=== PATIENT | male | born 1960 | race Caucasian/White ===

== ENCOUNTER 2019-05-09 10:45 | Emergency (ER) | payer OTHER ==
[2019-05-09 11:02] VITALS: BP 144/92; PULSE 82
[2019-05-09] MEDS ORDERED: Sodium Chloride 0.9% 10 ML Syringe FLUSH PRN (11:24)
[2019-05-09] MEDS ORDERED: Ondansetron 4 MG/2 ML SDV IVPUSH ONE (11:25)
[2019-05-09] MEDS ORDERED: Sodium Chloride 0.9% 1,000 ML IV ONE (11:25)
--- NOTE | 2019-05-09 11:30 | EDM.PDOC ---
ED HPI GENERAL MEDICAL PROBLEM - General Chief Complaint: Gastrointestinal Problem Stated Complaint: STOMACH ISSUES Time Seen by Provider: 05/09/19 11:06 Source of Information: Reports: Patient History Limitations: Reports: No Limitations - History of Present Illness INITIAL COMMENTS - FREE TEXT/NARRATIVE: Redd is a 59 year old male who presents to the ED today with c/o diarrhea since about noon on . Patient was waking up in the middle of the night every couple of hours with watery stool, denies any blood in diarrhea. Patient denies any vomiting but is nauseated, c/o fever/chills intermittently, took Mylanta without relief. Has had 2 loose stools today but none while sleeping last night. Denies any abdominal pain just c/o abdominal "discomfort". Patient has not traveled outside of [place] lately, no recent antibiotics, thinks his symptoms may have been due to a hard boiled egg he ate at a hotel on morning. Patient has had a recent colonoscopy and thinks he was told he has diverticulosis, but has never had diverticulitis. Onset: Gradual Duration: Day(s): (3) Abdominal Pain Score (Numeric/FACES): 6 - Related Data Allergies Allergy/AdvReac Type Severity Reaction Status Date / Time Sulfa (Sulfonamide Allergy Hives Verified 05/09/19 11:08 Antibiotics) Home Meds: Home Meds Multivitamin [Multi-Vitamin Daily] 1 tab PO DAILY 02/18/19 [History] Past Medical History - Past Health History Medical/Surgical History: Denies Medical/Surgical History HEENT History: Reports: None Cardiovascular History: Reports: None Respiratory History: Reports: None Gastrointestinal History: Reports: None Genitourinary History: Reports: None Musculoskeletal History: Reports: Back Pain, Chronic, Fracture Other Musculoskeletal History: ankle Neurological History: Reports: None Psychiatric History: Reports: None Endocrine/Metabolic History: Reports: None Hematologic History: Reports: Other (See Below) Other Hematologic History: history of purpura Immunologic History: Reports: None Oncologic (Cancer) History: Reports: None Dermatologic History: Reports: None - Past Surgical History GI Surgical History: Reports: Colonoscopy, Polypectomy Musculoskeletal Surgical History: Reports: Other (See Below) Other Musculoskeletal Surgeries/Procedures:: left leg surgery in past Social & Family History - Tobacco Use Smoking Status *Q: Never Smoker - Caffeine Use Caffeine Use: Reports: Tea - Recreational Drug Use Recreational Drug Use: No ED ROS GENERAL - Review of Systems Review Of Systems: ROS reveals no pertinent complaints other than HPI. ED EXAM, GI/ABD - Physical Exam Exam: See Below Exam Limited By: No Limitations General Appearance: Alert, WD/WN, No Apparent Distress Eyes: Bilateral: EOMI Ears: Normal External Exam Throat/Mouth: Normal Inspection Head: Atraumatic Neck: Normal Inspection, Supple, Non-Tender Respiratory/Chest: No Respiratory Distress, Lungs Clear Cardiovascular: Normal Peripheral Pulses, Regular Rate, Rhythm GI/Abdominal Exam: Normal Bowel Sounds, Soft, Non-Tender, No Distention Back Exam: Normal Inspection Extremities: Normal Inspection Neurological: Alert, Oriented, CN II-XII Intact Psychiatric: Normal Affect Skin Exam: Warm, Dry, Intact Lymphatic: No Adenopathy Course - Vital Signs Last Recorded V/S: Last Vital Signs Temp 36.6 C 05/09/19 11:46 Pulse 82 05/09/19 11:46 Resp 19 05/09/19 11:46 BP 144/92 H 05/09/19 11:46 Pulse Ox 96 05/09/19 11:46 Redd is a 59 year old male who presents to the ED today with c/o diarrhea, weakness, light headedness. Please refer to HPI and focused exam. Patient on arrival here is hemodynamically stable and afebrile. Patient's exam is reassuring and unremarkable. PIV established, patient given Zofran for nausea and IV fluids. Blood work returns with leukocytosis of 17.7 and a left shift, elevated CRP. Sodium mildly low at 138 with a potassium of 3.4. Kidney function stable. Gap of 16.4, mildly elevated bilirubin of 1.3. Secondary to elevated white count, CT of abdomen/pelvis obtained with contrast. No acute findings on CT to warrant GI complaints, however, radiologist did call with concern about 1.8 cm right renal mass concerning for renal carcinoma. Right middle lobe pulmonary nodules as well although patient with minimal smoking history "constitution party smoker years ago". Patient updated on findings, request for primary care follow up here next week as patient and just moved up here and he does not have a PCP as of yet. Strongly encouraged urology follow up per PCP recommendation. Patient given dietary recommendations, strongly recommend Culturelle. Discussed importance of hydration and reasons to return to the ED. Patient and agreeable to plan of care and patient discharged in stable condition. - Orders/Labs/Meds Orders: Active Orders 24 hr Category Date Time Status Peripheral IV Care [RC] . DIRECTED Care 05/09/19 11:24 Active CLOSTRIDIUM DIFFICILE BY PCR [] Stat Lab 05/09/19 11:13 Ordered CULTURE STOOL + SHIGATOX [RM] Stat Lab 05/09/19 11:13 Ordered Sodium Chloride 0.9% [Saline Flush] Med 05/09/19 11:24 Active 10 ml FLUSH ASDIRECTED PRN Isolation [COMM] Stat Oth 05/09/19 11:14 Ordered Peripheral IV Insertion Adult [OM.PC] Routine Oth 05/09/19 11:24 Ordered Medication Orders Sodium Chloride (Saline Flush) 10 ml FLUSH ASDIRECTED PRN PRN Reason: Keep Vein Open Last Admin: 05/09/19 12:06 Dose: 10 ml Labs: Laboratory Tests 05/09/19 05/09/19 05/09/19 Range/Units 11:35 11:35 11:35 WBC 17.7 H (4.5-11.0) K/uL RBC 5.14 (4.30-5.90) M/uL Hgb 16.3 H (12.0-15.0) g/dL Hct 46.7 (40.0-54.0) % MCV 91 (80-98) fL MCH 32 H (27-31) pg MCHC 35 (32-36) % Plt Count 255 (150-400) K/uL Neut % (Auto) 82 H (36-66) % Lymph % (Auto) 7 L (24-44) % [place] % (Auto) 9 H (2-6) % Eos % (Auto) 2 (2-4) % Baso % (Auto) 0 (0-1) % Sodium 138 L (140-148) mmol/L Potassium 3.4 L (3.6-5.2) mmol/L Chloride 102 (100-108) mmol/L Carbon Dioxide 23 (21-32) mmol/L Anion Gap 16.4 H (5.0-14.0) mmol/L BUN 16 (7-18) mg/dL Creatinine 1.1 (0.8-1.3) mg/dL Est Cr Clr Drug Dosing 80.34 mL/min Estimated GFR (MDRD) > 60 (>60) Glucose 86 (74-106) mg/dL Calcium 8.9 (8.5-10.1) mg/dL Magnesium 1.8 (1.8-2.4) mg/dL Total Bilirubin 1.3 H (0.2-1.0) mg/dL AST 17 (15-37) U/L ALT 31 (12-78) U/L Alkaline Phosphatase 88 (46-116) U/L C-Reactive Protein 2.81 H (0.0-0.3) mg/dL Total Protein 7.3 (6.4-8.2) g/dL Albumin 3.6 (3.4-5.0) g/dL Globulin 3.7 H (2.3-3.5) g/dL Albumin/Globulin Ratio 1.0 L (1.2-2.2) Lipase 44 L (73-393) U/L Meds: Medications Generic Name Dose Route Start Last Admin Trade Name Freq PRN Reason Stop Dose Admin Sodium Chloride 10 ml 05/09/19 11:24 05/09/19 12:06 Saline Flush FLUSH 10 ml ASDIRECTED PRN Administration Keep Vein Open Discontinued Medications Generic Name Dose Route Start Last Admin Trade Name Freq PRN Reason Stop Dose Admin Sodium Chloride 1,000 mls @ 999 mls/hr 05/09/19 11:25 05/09/19 11:40 Normal Saline IV 05/09/19 12:25 999 mls/hr .BOLUS ONE Administration Sodium Chloride 80 mls @ 3 mls/sec 05/09/19 12:15 05/09/19 12:26 Normal Saline IV 05/09/19 12:16 3 mls/sec ONETIME ONE Administration Iopamidol 135 ml 05/09/19 12:15 05/09/19 12:26 Isovue-300 (61%) IV 135 ml . DIRECTED TALISHA Administration Ondansetron HCl 4 mg 05/09/19 11:25 05/09/19 11:40 Zofran IVPUSH 05/09/19 11:26 4 mg ONETIME ONE Administration Sodium Chloride 10 ml 05/09/19 12:15 05/09/19 12:26 Saline Flush FLUSH 05/09/19 12:16 10 ml ONETIME ONE Administration Departure - Departure Time of Disposition: 14:00 Disposition: Home, Self-Care 01 Condition: Fair Clinical Impression: Gastroenteritis, Diarrhea, Renal mass, right - Discharge Information Instructions: Diarrhea, Adult, Viral Gastroenteritis, Adult Referrals: PCP,None [Primary Care Provider] - Forms: ED Department Discharge Additional Instructions: Stay well hydrated. Zofran as needed for nausea as prescribed. I would strongly encourage a good probiotic, Culturelle, this is over the counter in a yellow box. I would take one capsule twice daily for the next 7 days. I have requested a primary care appointment for you this week. They can refer to urology. Take care, hope you feel better soon and good luck with everything. - My Orders Last 24 Hours: My Active Orders 05/09/19 11:13 CLOSTRIDIUM DIFFICILE BY PCR [RM] Stat CULTURE STOOL + SHIGATOX [RM] Stat 05/09/19 11:14 Isolation [COMM] Stat 05/09/19 11:24 Peripheral IV Care [RC] . DIRECTED Sodium Chloride 0.9% [Saline Flush] 10 ml FLUSH ASDIRECTED PRN Peripheral IV Insertion Adult [OM.PC] Routine - Assessment/Plan Last 24 Hours: My Active Orders 05/09/19 11:13 CLOSTRIDIUM DIFFICILE BY PCR [RM] Stat CULTURE STOOL + SHIGATOX [RM] Stat 05/09/19 11:14 Isolation [COMM] Stat 05/09/19 11:24 Peripheral IV Care [RC] . DIRECTED Sodium Chloride 0.9% [Saline Flush] 10 ml FLUSH ASDIRECTED PRN Peripheral IV Insertion Adult [OM.PC] Routine
[2019-05-09] MEDS ORDERED: Iopamidol 612 MG/ML 150 ML Bottle IV SCH (12:15)
[2019-05-09] MEDS ORDERED: Sodium Chloride 0.9% 10 ML Syringe FLUSH ONE (12:15)
[2019-05-09] MEDS ORDERED: Sodium Chloride 0.9% 80 ML IV ONE (12:15)
--- NOTE | 2019-05-09 13:05 | CRLCT ---
HISTORY: Left lower quadrant pain. Nausea and diarrhea. Leukocytosis. TECHNIQUE: CT abdomen pelvis with IV contrast. COMPARISON: None. FINDINGS: Abdomen: No liver lesions. No bile duct dilation. No pancreatic mass or pancreatic duct dilation. No spleen lesions. No adrenal nodules. Kidneys enhance symmetrically. 1.8 x 1.3 x 1.4 cm solid mass in the upper pole the right kidney no hydronephrosis. No dilated bowel. Appendix is normal. No pericolonic inflammatory change. No free fluid. No lymphadenopathy. Abdominal aorta is normal caliber. Pelvis: No lymphadenopathy. Musculoskeletal: Degenerative changes of the spine. Lower chest: Adjacent 3 mm pulmonary nodules in the right middle lobe (series 2 image 5). Mild atelectasis in the lung bases. IMPRESSION: 1. No acute findings in the abdomen or pelvis. 2. 1.8 cm solid right renal mass suspicious for renal cell carcinoma. Recommend urology consultation. 3. 3 mm pulmonary nodules in the right middle lobe. If patient is at high risk for malignancy consider follow-up chest CT in 12 months. --- Called to Danay Lopez NP on 05/09/19 at 1300 hours. Please note that all CT scans at this facility use dose modulation, iterative reconstruction, and/or weight-based dosing when appropriate to reduce radiation dose to as low as reasonably achievable. Dictated by Koko Muniz MD @ May 09 2019 1:04PM Signed by Dr. Koko Muniz @ May 09 2019 1:04PM
== END 2019-05-09 13:46 | disposition home or self-care (01) ==
LOC: JP.ED 10:45
DX: K52.9 Noninfective gastroenteritis and colitis, unspecified (principal); N28.89 Other specified disorders of kidney and ureter; Z88.2 Allergy status to sulfonamides
CPT/HCPCS: 36415; 74177; 80053; 83690; 83735; 85025; 86140; 96361; 96374; 99284; 99285; J2405; J7030

== ENCOUNTER 2020-10-11 10:16 | Inpatient (IN) | payer OTHER ==
[2020-10-11] MEDS ORDERED: Sodium Chloride 0.9% 10 ML Syringe FLUSH PRN ×2 (11:36→16:07)
--- NOTE | 2020-10-11 11:42 | EDM.PDOC ---
ED HPI GENERAL MEDICAL PROBLEM - General Chief Complaint: Genitourinary Problem Stated Complaint: POSSIBLE UTI Time Seen by Provider: 10/11/20 10:55 Source of Information: Reports: Patient, RN Notes Reviewed History Limitations: Reports: No Limitations - History of Present Illness INITIAL COMMENTS - FREE TEXT/NARRATIVE: 60-year-old gentleman presents emergency department today with concerns of a urinary tract infection, he states been ill for about 3 days he has had fevers and chills at home body aches feeling poorly he has dysuria admits to feeling ill is never had a urinary tract infection in the past - Related Data Allergies Allergy/AdvReac Type Severity Reaction Status Date / Time Sulfa (Sulfonamide Allergy Hives Verified 10/11/20 10:34 Antibiotics) Home Meds: Home Meds Multivitamin [Multi-Vitamin Daily] 1 tab PO DAILY 02/18/19 [History] allopurinoL [Zyloprim] 100 mg PO DAILY 10/11/20 [History] Past Medical History Genitourinary History: Reports: Renal Disease Other Genitourinary History: removed part of right kidney cancerous lesion Musculoskeletal History: Reports: Back Pain, Chronic, Fracture Other Musculoskeletal History: ankle. low back pain Hematologic History: Reports: Other (See Below) Other Hematologic History: history of purpura - Infectious Disease History Infectious Disease History: Reports: Chicken Pox, Shingles - Past Surgical History GI Surgical History: Reports: Colonoscopy, Polypectomy Male Surgical History: Reports: None Musculoskeletal Surgical History: Reports: Other (See Below) Other Musculoskeletal Surgeries/Procedures:: left leg surgery in past Social & Family History - Tobacco Use Tobacco Use Status *Q: Never Tobacco User - Caffeine Use Caffeine Use: Reports: Tea - Recreational Drug Use Recreational Drug Use: No ED ROS GENERAL - Review of Systems Review Of Systems: See Below Constitutional: Reports: Fever, Chills, Fatigue HEENT: Reports: No Symptoms Respiratory: Reports: No Symptoms Cardiovascular: Reports: No Symptoms GI/Abdominal: Reports: No Symptoms : Reports: Dysuria, Frequency, Urgency ED EXAM, RENAL/ - Physical Exam Exam: See Below Exam Limited By: No Limitations General Appearance: Alert, WD/WN, No Apparent Distress Respiratory/Chest: No Respiratory Distress, Lungs Clear, Normal Breath Sounds, No Accessory Muscle Use, Chest Non-Tender Cardiovascular: Regular Rate, Rhythm, No Murmur GI/Abdominal: Soft, Non-Tender Rectal (Males) Exam: Normal Exam, Normal Rectal Tone, Prostate Normal Back Exam: Normal Inspection, Full Range of Motion. No: CVA Tenderness (R), CVA Tenderness (L) Course - Vital Signs Last Recorded V/S: Last Vital Signs Temp 98.8 F 10/11/20 13:00 Pulse 90 10/11/20 13:00 Resp 18 10/11/20 13:00 BP 120/75 10/11/20 13:00 Pulse Ox 97 10/11/20 13:00 - Orders/Labs/Meds Orders: Active Orders 24 hr Category Date Time Status Vital Signs [RC] Q1H Care 10/11/20 11:36 Active CULTURE BLOOD [BC] Urgent Lab 10/11/20 11:45 Received CULTURE BLOOD [BC] Urgent Lab 10/11/20 11:55 Received CULTURE URINE [RM] Urgent Lab 10/11/20 11:28 Received Lactated Ringers [Ringers, Lactated] 1,000 ml Med 10/11/20 11:45 Active IV ASDIRECTED Lactated Ringers [Ringers, Lactated] 1,000 ml Med 10/11/20 13:00 Active IV BOLUS Sodium Chloride 0.9% [Saline Flush] Med 10/11/20 11:36 Active 10 ml FLUSH ASDIRECTED PRN cefTRIAXone [Rocephin] 2 gm Med 10/11/20 11:45 Active Sodium Chloride 0.9% [Normal Saline] 50 ml IV Q24H Blood Culture x2 Reflex Set [OM.PC] Urgent Oth 10/11/20 11:36 Ordered Saline Lock Insert [OM.PC] Stat Oth 10/11/20 11:36 Ordered Severe Sepsis Onset Time [OM.PC] Stat Oth 10/11/20 11:36 Ordered Medication Orders Lactated Ringer's (Ringers, Lactated) 1,000 mls @ 999 mls/hr IV ASDIRECTED TALISHA Last Admin: 10/11/20 11:45 Dose: 999 mls/hr Documented by: OLE Ceftriaxone Sodium 2 gm/ (Sodium Chloride) 50 mls @ 100 mls/hr IV Q24H TALISHA Last Admin: 10/11/20 12:01 Dose: 100 mls/hr Documented by: OLE Lactated Ringer's (Ringers, Lactated) 1,000 mls @ 999 mls/hr IV BOLUS TALISHA Stop: 10/11/20 14:01 Last Admin: 10/11/20 12:54 Dose: 999 mls/hr Documented by: KIRAN Sodium Chloride (Sodium Chloride 0.9% 10 Ml Syringe) 10 ml FLUSH ASDIRECTED PRN PRN Reason: Keep Vein Open Labs: Laboratory Tests 10/11/20 10/11/20 10/11/20 Range/Units 10:47 11:55 11:55 WBC 23.4 H (4.5-11.0) K/uL RBC 4.91 (4.30-5.90) M/uL Hgb 15.5 H (12.0-15.0) g/dL Hct 45.2 (40.0-54.0) % MCV 92 (80-98) fL MCH 32 H (27-31) pg MCHC 34 (32-36) % Plt Count 234 (150-400) K/uL Neut % (Auto) 87 H (36-66) % Lymph % (Auto) 4 L (24-44) % [place] % (Auto) 9 H (2-6) % Eos % (Auto) 0 L (2-4) % Baso % (Auto) 0 (0-1) % Sodium 139 L (140-148) mmol/L Potassium 3.9 (3.6-5.2) mmol/L Chloride 101 (100-108) mmol/L Carbon Dioxide 26 (21-32) mmol/L Anion Gap 15.9 H (5.0-14.0) mmol/L BUN 16 (7-18) mg/dL Creatinine 1.5 H (0.8-1.3) mg/dL Est Cr Clr Drug Dosing 58.20 mL/min Estimated GFR (MDRD) 48 L (>60) Glucose 120 H (74-106) mg/dL Lactic Acid (0.4-2.0) mmol/L Calcium 9.0 (8.5-10.1) mg/dL Total Bilirubin 1.9 H (0.2-1.0) mg/dL AST 17 (15-37) U/L ALT 40 (12-78) U/L Alkaline Phosphatase 107 (46-116) U/L C-Reactive Protein 20.03 H (0.0-0.3) mg/dL Total Protein 7.5 (6.4-8.2) g/dL Albumin 3.4 (3.4-5.0) g/dL Globulin 4.1 H (2.3-3.5) g/dL Albumin/Globulin Ratio 0.8 L (1.2-2.2) Procalcitonin ng/mL Urine Color Brown A (YELLOW) Urine Appearance Cloudy A (CLEAR) Urine pH 6.0 (5.0-8.0) Ur Specific [place] >= 1.030 (1.008-1.030) Urine Protein >=300 H (NEGATIVE) mg/dL Urine Glucose (UA) Negative (NEGATIVE) mg/dL Urine Ketones 15 H (NEGATIVE) mg/dL Urine Occult Blood Large H (NEGATIVE) Urine Nitrite Positive H (NEGATIVE) Urine Bilirubin Small H (NEGATIVE) Urine Urobilinogen 1.0 (0.2-1.0) EU/dL Ur Leukocyte Esterase Small H (NEGATIVE) Urine RBC 50-75 H (0-5) Urine WBC 30-40 H (0-5) Ur Epithelial Cells Not seen Amorphous Sediment Not seen Urine Bacteria Many Urine Mucus Not seen 10/11/20 10/11/20 Range/Units 11:55 11:55 WBC (4.5-11.0) K/uL RBC (4.30-5.90) M/uL Hgb (12.0-15.0) g/dL Hct (40.0-54.0) % MCV (80-98) fL MCH (27-31) pg MCHC (32-36) % Plt Count (150-400) K/uL Neut % (Auto) (36-66) % Lymph % (Auto) (24-44) % [place] % (Auto) (2-6) % Eos % (Auto) (2-4) % Baso % (Auto) (0-1) % Sodium (140-148) mmol/L Potassium (3.6-5.2) mmol/L Chloride (100-108) mmol/L Carbon Dioxide (21-32) mmol/L Anion Gap (5.0-14.0) mmol/L BUN (7-18) mg/dL Creatinine (0.8-1.3) mg/dL Est Cr Clr Drug Dosing mL/min Estimated GFR (MDRD) (>60) Glucose (74-106) mg/dL Lactic Acid 1.7 (0.4-2.0) mmol/L Calcium (8.5-10.1) mg/dL Total Bilirubin (0.2-1.0) mg/dL AST (15-37) U/L ALT (12-78) U/L Alkaline Phosphatase (46-116) U/L C-Reactive Protein (0.0-0.3) mg/dL Total Protein (6.4-8.2) g/dL Albumin (3.4-5.0) g/dL Globulin (2.3-3.5) g/dL Albumin/Globulin Ratio (1.2-2.2) Procalcitonin 0.67 ng/mL Urine Color (YELLOW) Urine Appearance (CLEAR) Urine pH (5.0-8.0) Ur Specific [place] (1.008-1.030) Urine Protein (NEGATIVE) mg/dL Urine Glucose (UA) (NEGATIVE) mg/dL Urine Ketones (NEGATIVE) mg/dL Urine Occult Blood (NEGATIVE) Urine Nitrite (NEGATIVE) Urine Bilirubin (NEGATIVE) Urine Urobilinogen (0.2-1.0) EU/dL Ur Leukocyte Esterase (NEGATIVE) Urine RBC (0-5) Urine WBC (0-5) Ur Epithelial Cells Amorphous Sediment Urine Bacteria Urine Mucus Meds: Medications Generic Name Dose Route Start Last Admin Trade Name Freq PRN Reason Stop Dose Admin Lactated Ringer's 1,000 mls @ 999 mls/hr 10/11/20 11:45 10/11/20 11:45 Ringers, Lactated IV 999 mls/hr ASDIRECTED TALISHA Administration Ceftriaxone Sodium 2 gm/ 50 mls @ 100 mls/hr 10/11/20 11:45 10/11/20 12:01 Sodium Chloride IV 100 mls/hr Q24H TALISHA Administration Lactated Ringer's 1,000 mls @ 999 mls/hr 10/11/20 13:00 10/11/20 12:54 Ringers, Lactated IV 10/11/20 14:01 999 mls/hr BOLUS TALISHA Administration Sodium Chloride 10 ml 10/11/20 11:36 Sodium Chloride 0.9% 10 Ml Syringe FLUSH ASDIRECTED PRN Keep Vein Open Departure - Departure Time of Disposition: 13:52 Disposition: Admitted As Inpatient 67 Condition: Fair Clinical Impression: UTI, Urinary tract infectious disease - Discharge Information Referrals: PCP,None [Primary Care Provider] - Forms: ED Department Discharge Sepsis Event Note (ED) - Evaluation Sepsis Screening Result: Possible Severe Sepsis Risk - Focused Exam Vital Signs: Vital Signs Temp Pulse Resp BP Pulse Ox 10/11/20 13:00 98.8 F 90 18 120/75 97 10/11/20 12:35 99.1 F 90 16 118/74 97 10/11/20 11:34 99.1 F 102 H 16 129/81 96 10/11/20 10:43 99.1 F 102 H 16 129/81 96 10/11/20 10:32 99.1 F 102 H 16 129/81 96 - My Orders Last 24 Hours: My Active Orders 10/11/20 11:28 CULTURE URINE [RM] Urgent 10/11/20 11:36 Vital Signs [RC] Q1H Sodium Chloride 0.9% [Saline Flush] 10 ml FLUSH ASDIRECTED PRN Blood Culture x2 Reflex Set [OM.PC] Urgent Saline Lock Insert [OM.PC] Stat Severe Sepsis Onset Time [OM.PC] Stat 10/11/20 11:45 CULTURE BLOOD [BC] Urgent Lactated Ringers [Ringers, Lactated] 1,000 ml IV ASDIRECTED cefTRIAXone [Rocephin] 2 gm Sodium Chloride 0.9% [Normal Saline] 50 ml IV Q24H 10/11/20 11:55 CULTURE BLOOD [BC] Urgent 10/11/20 13:00 Lactated Ringers [Ringers, Lactated] 1,000 ml IV BOLUS - Assessment/Plan Last 24 Hours: My Active Orders 10/11/20 11:28 CULTURE URINE [RM] Urgent 10/11/20 11:36 Vital Signs [RC] Q1H Sodium Chloride 0.9% [Saline Flush] 10 ml FLUSH ASDIRECTED PRN Blood Culture x2 Reflex Set [OM.PC] Urgent Saline Lock Insert [OM.PC] Stat Severe Sepsis Onset Time [OM.PC] Stat 10/11/20 11:45 CULTURE BLOOD [BC] Urgent Lactated Ringers [Ringers, Lactated] 1,000 ml IV ASDIRECTED cefTRIAXone [Rocephin] 2 gm Sodium Chloride 0.9% [Normal Saline] 50 ml IV Q24H 10/11/20 11:55 CULTURE BLOOD [BC] Urgent 10/11/20 13:00 Lactated Ringers [Ringers, Lactated] 1,000 ml IV BOLUS Plan: Assessment Acuity = acute Site and laterality = urinary tract infection, systemic inflammatory response syndrome Etiology = probable bacterial cause urinary source Manifestations = tachycardia Location of injury = Home Lab values = WBC elevated 23.4 consistent leukocytosis, creatinine elevated 1.5 consistent acute renal failure stage T3a bilirubin elevated 1.9 consistent hyperbilirubinemia CRP elevated 20.03 procalcitonin elevated 0.67 urinalysis positive for nitrates 50-75 RBCs 30-40 WBCs consistent with hematuria and pyuria respectively, urine culture blood culture pending Plan He did receive 2 L of lactated Ringer's in the emergency department as well as 2 g of Rocephin call discussed case hospitalist on-call at [phone] kindly agreed to come evaluate patient emergency department for admission This note was dictated using [employer] voice recognition software please call with any questions on syntax or grammar.
[2020-10-11] MEDS ORDERED: Lactated Ringers 1,000 ML IV SCH ×2 (11:45→13:00)
[2020-10-11] MEDS ORDERED: cefTRIAXone 2 GM in Sodium Chloride 0.9% 50 ML IV SCH (11:45)
--- NOTE | 2020-10-11 14:26 | PCM.HP.2 ---
H&P History of Present Illness - General Date of Service: 10/11/20 Admit Problem/Dx: Admission Diagnosis/Problem Admission Diagnosis/Problem Urinary tract infection Source of Information: Patient, Provider, RN Notes Reviewed History Limitations: Reports: No Limitations - History of Present Illness Initial Comments - Free Text/Narative: Mr. English is a 60-year-old gentleman who was admitted through the emergency department with weakness secondary to urinary tract infection. He felt well until 2 days ago when he developed progressive weakness with myalgias. At that time he also noted onset of cloudy appearing urine associated with dysuria. Symptoms have persisted over the past few days and become progressively worse. He presented to the emergency department today and on evaluation is noted to have an elevated white blood cell count and urinalysis consistent with infection. He does have a known history of renal cell CA and is status post partial nephrectomy done approximately 1 year ago. He typically does not have significant urinary symptoms or difficulty with urination. - Related Data Allergies/Adverse Reactions: Allergies Allergy/AdvReac Type Severity Reaction Status Date / Time Sulfa (Sulfonamide Allergy Hives Verified 10/11/20 10:34 Antibiotics) Home Medications: Home Meds Multivitamin [Multi-Vitamin Daily] 1 tab PO DAILY 02/18/19 [History] allopurinoL [Zyloprim] 100 mg PO DAILY 10/11/20 [History] Past Medical History - Past Health History Medical/Surgical History: Denies Medical/Surgical History HEENT History: Reports: None Cardiovascular History: Reports: None Respiratory History: Reports: None Gastrointestinal History: Reports: None Genitourinary History: Reports: Renal Disease Other Genitourinary History: removed part of right kidney cancerous lesion Musculoskeletal History: Reports: Back Pain, Chronic, Fracture Other Musculoskeletal History: ankle. low back pain Neurological History: Reports: None Psychiatric History: Reports: None Endocrine/Metabolic History: Reports: None Hematologic History: Reports: Other (See Below) Other Hematologic History: history of purpura Immunologic History: Reports: None Oncologic (Cancer) History: Reports: None Dermatologic History: Reports: None - Infectious Disease History Infectious Disease History: Reports: Chicken Pox, Shingles - Past Surgical History GI Surgical History: Reports: Colonoscopy, Polypectomy Male Surgical History: Reports: None Musculoskeletal Surgical History: Reports: Other (See Below) Other Musculoskeletal Surgeries/Procedures:: left leg surgery in past Social & Family History - Tobacco Use Tobacco Use Status *Q: Never Tobacco User - Caffeine Use Caffeine Use: Reports: Tea - Recreational Drug Use Recreational Drug Use: No H&P Review of Systems - Review of Systems: Review Of Systems: See Below General: Reports: Fever, Chills, Malaise, Weakness, Fatigue, Decreased Appetite HEENT: Reports: No Symptoms Pulmonary: Reports: No Symptoms Cardiovascular: Reports: No Symptoms Gastrointestinal: Reports: No Symptoms Genitourinary: Reports: Dysuria, Frequency, Urgency, Hematuria. Denies: Incontinence, Retention, Flank Pain Musculoskeletal: Reports: No Symptoms Skin: Reports: No Symptoms Psychiatric: Reports: No Symptoms Neurological: Reports: No Symptoms Hematologic/Lymphatic: Reports: No Symptoms Immunologic: Reports: No Symptoms Exam - Exam Exam: See Below - Vital Signs Vital Signs: Last Vital Signs Temp 98.8 F 10/11/20 13:00 Pulse 90 10/11/20 13:00 Resp 18 10/11/20 13:00 BP 120/75 10/11/20 13:00 Pulse Ox 97 10/11/20 13:00 Weight: 205 lb 4.006 oz - Exam Quality Assessment: DVT Prophylaxis General: Alert, Oriented, Cooperative, Moderate Distress HEENT: Conjunctiva Clear, Hearing Intact, Mucosa Moist & [place], Normal Nasal Septum, Posterior Pharynx Clear, Pupils Equal Neck: Supple, Trachea Midline, +2 Carotid Pulse wo Bruit Lungs: Clear to Auscultation, Normal Respiratory Effort Cardiovascular: Regular Rate, Regular Rhythm, Normal S1, Normal S2. No: Systolic Murmur, Diastolic Murmur GI/Abdominal Exam: Soft, Non-Tender, No Organomegaly, No Distention Back Exam: Normal Inspection, Full Range of Motion. No: CVA Tenderness (R), CVA Tenderness (L) Extremities: Non-Tender, No Pedal Edema Skin: Warm, Dry, Intact Neurological: Cranial Nerves Intact, Strength Equal Bilateral, Normal Speech, Normal Tone, Sensation Intact. No: Focal Deficit Neuro Extensive - Mental Status: Alert, Oriented x3, Normal Mood/Affect, Normal Cognition, Memory Intact - Patient Data Lab Results Last 24 hrs: Laboratory Results - last 24 hr 10/11/20 10/11/20 10/11/20 Range/Units 10:47 11:55 11:55 WBC 23.4 H (4.5-11.0) K/uL RBC 4.91 (4.30-5.90) M/uL Hgb 15.5 H (12.0-15.0) g/dL Hct 45.2 (40.0-54.0) % MCV 92 (80-98) fL MCH 32 H (27-31) pg MCHC 34 (32-36) % Plt Count 234 (150-400) K/uL Neut % (Auto) 87 H (36-66) % Lymph % (Auto) 4 L (24-44) % [place] % (Auto) 9 H (2-6) % Eos % (Auto) 0 L (2-4) % Baso % (Auto) 0 (0-1) % Sodium 139 L (140-148) mmol/L Potassium 3.9 (3.6-5.2) mmol/L Chloride 101 (100-108) mmol/L Carbon Dioxide 26 (21-32) mmol/L Anion Gap 15.9 H (5.0-14.0) mmol/L BUN 16 (7-18) mg/dL Creatinine 1.5 H (0.8-1.3) mg/dL Est Cr Clr Drug Dosing 58.20 mL/min Estimated GFR (MDRD) 48 L (>60) Glucose 120 H (74-106) mg/dL Lactic Acid (0.4-2.0) mmol/L Calcium 9.0 (8.5-10.1) mg/dL Total Bilirubin 1.9 H (0.2-1.0) mg/dL AST 17 (15-37) U/L ALT 40 (12-78) U/L Alkaline Phosphatase 107 (46-116) U/L C-Reactive Protein 20.03 H (0.0-0.3) mg/dL Total Protein 7.5 (6.4-8.2) g/dL Albumin 3.4 (3.4-5.0) g/dL Globulin 4.1 H (2.3-3.5) g/dL Albumin/Globulin Ratio 0.8 L (1.2-2.2) Procalcitonin ng/mL Urine Color Brown A (YELLOW) Urine Appearance Cloudy A (CLEAR) Urine pH 6.0 (5.0-8.0) Ur Specific [place] >= 1.030 (1.008-1.030) Urine Protein >=300 H (NEGATIVE) mg/dL Urine Glucose (UA) Negative (NEGATIVE) mg/dL Urine Ketones 15 H (NEGATIVE) mg/dL Urine Occult Blood Large H (NEGATIVE) Urine Nitrite Positive H (NEGATIVE) Urine Bilirubin Small H (NEGATIVE) Urine Urobilinogen 1.0 (0.2-1.0) EU/dL Ur Leukocyte Esterase Small H (NEGATIVE) Urine RBC 50-75 H (0-5) Urine WBC 30-40 H (0-5) Ur Epithelial Cells Not seen Amorphous Sediment Not seen Urine Bacteria Many Urine Mucus Not seen 10/11/20 10/11/20 Range/Units 11:55 11:55 WBC (4.5-11.0) K/uL RBC (4.30-5.90) M/uL Hgb (12.0-15.0) g/dL Hct (40.0-54.0) % MCV (80-98) fL MCH (27-31) pg MCHC (32-36) % Plt Count (150-400) K/uL Neut % (Auto) (36-66) % Lymph % (Auto) (24-44) % [place] % (Auto) (2-6) % Eos % (Auto) (2-4) % Baso % (Auto) (0-1) % Sodium (140-148) mmol/L Potassium (3.6-5.2) mmol/L Chloride (100-108) mmol/L Carbon Dioxide (21-32) mmol/L Anion Gap (5.0-14.0) mmol/L BUN (7-18) mg/dL Creatinine (0.8-1.3) mg/dL Est Cr Clr Drug Dosing mL/min Estimated GFR (MDRD) (>60) Glucose (74-106) mg/dL Lactic Acid 1.7 (0.4-2.0) mmol/L Calcium (8.5-10.1) mg/dL Total Bilirubin (0.2-1.0) mg/dL AST (15-37) U/L ALT (12-78) U/L Alkaline Phosphatase (46-116) U/L C-Reactive Protein (0.0-0.3) mg/dL Total Protein (6.4-8.2) g/dL Albumin (3.4-5.0) g/dL Globulin (2.3-3.5) g/dL Albumin/Globulin Ratio (1.2-2.2) Procalcitonin 0.67 ng/mL Urine Color (YELLOW) Urine Appearance (CLEAR) Urine pH (5.0-8.0) Ur Specific [place] (1.008-1.030) Urine Protein (NEGATIVE) mg/dL Urine Glucose (UA) (NEGATIVE) mg/dL Urine Ketones (NEGATIVE) mg/dL Urine Occult Blood (NEGATIVE) Urine Nitrite (NEGATIVE) Urine Bilirubin (NEGATIVE) Urine Urobilinogen (0.2-1.0) EU/dL Ur Leukocyte Esterase (NEGATIVE) Urine RBC (0-5) Urine WBC (0-5) Ur Epithelial Cells Amorphous Sediment Urine Bacteria Urine Mucus Result Diagrams: 10/11/20 11:55 10/11/20 11:55 Sepsis Event Note - Evaluation Sepsis Screening Result: Possible Severe Sepsis Risk - Focused Exam Vital Signs: Vital Signs Temp Pulse Resp BP Pulse Ox 10/11/20 13:00 98.8 F 90 18 120/75 97 10/11/20 12:35 99.1 F 90 16 118/74 97 10/11/20 11:34 99.1 F 102 H 16 129/81 96 10/11/20 10:43 99.1 F 102 H 16 129/81 96 10/11/20 10:32 99.1 F 102 H 16 129/81 96 *Q Meaningful Use (ADM) - VTE Risk Assess *Q Each Risk Factor Represents 1 Point: Age 41 - 59 years, Obesity ( BMI > 25 kg/m2) Total Score 1 Point Risk Factors: 2 Each Risk Factor Represents 2 Points: None Total Score 2 Point Risk Factors: 0 Each Risk Factor Represents 3 Points: None Total Score 3 Point Risk Factors: 0 Each Risk Factor Represents 5 Points: None Total Score 5 Point Risk Factors: 0 Venous Thromboembolism Risk Factor Score *Q: 2 Problem List Initiated/Reviewed/Updated: Yes Orders Last 24hrs: Active Orders 24 hr Category Date Time Status Patient Status Manage Transfer [TRANSFER] Routine ADT 10/11/20 14:20 Ordered Vital Signs [RC] Q1H Care 10/11/20 11:36 Active COVID-19/FLU A+B/RSV [MOLEC] Stat Lab 10/11/20 14:05 Ordered CULTURE BLOOD [BC] Urgent Lab 10/11/20 11:45 Received CULTURE BLOOD [BC] Urgent Lab 10/11/20 11:55 Received CULTURE URINE [RM] Urgent Lab 10/11/20 11:28 Received Lactated Ringers [Ringers, Lactated] 1,000 ml Med 10/11/20 11:45 Active IV ASDIRECTED Sodium Chloride 0.9% [Saline Flush] Med 10/11/20 11:36 Active 10 ml FLUSH ASDIRECTED PRN cefTRIAXone [Rocephin] 2 gm Med 10/11/20 11:45 Active Sodium Chloride 0.9% [Normal Saline] 50 ml IV Q24H Blood Culture x2 Reflex Set [OM.PC] Urgent Oth 10/11/20 11:36 Ordered Saline Lock Insert [OM.PC] Stat Oth 10/11/20 11:36 Ordered Severe Sepsis Onset Time [OM.PC] Stat Ot 10/11/20 11:36 Ordered Resuscitation Status Routine Resus Stat 10/11/20 14:22 Ordered Medication Orders Lactated Ringer's (Ringers, Lactated) 1,000 mls @ 999 mls/hr IV ASDIRECTED [facility] Last Admin: 10/11/20 11:45 Dose: 999 mls/hr Documented by: OLE Ceftriaxone Sodium 2 gm/ (Sodium Chloride) 50 mls @ 100 mls/hr IV Q24H [facility] Last Admin: 10/11/20 12:01 Dose: 100 mls/hr Documented by: OLE Sodium Chloride (Sodium Chloride 0.9% 10 Ml Syringe) 10 ml FLUSH ASDIRECTED PRN PRN Reason: Keep Vein Open Assessment/Plan Comment:: ASSESSMENT AND PLAN URINARY TRACT INFECTION-symptomatic for the past 2 days with progressive weakness and dysuria. No evidence of sepsis identified thus far. Urinalysis is consistent with infection and white blood cell count is elevated. -Urine and blood cultures pending -IV fluids for hydration -IV ceftriaxone pending culture results MAINTENANCE ISSUES -DVT prophylaxis; Lovenox 30 mg subcu daily -GI prophylaxis; not indicated -Scott catheter; not indicated -Nutrition; regular diet -Nicotine dependence; not required CODE STATUS-FULL CODE ADMISSION STATUS-patient will be admitted to inpatient status, expect at least a 2 night hospital stay for evaluation and management of problems as outlined above. At the time of this admission I do not reasonably expected evaluation and management of this problem will require more than a 96 hour hospital stay. DISPOSITION-anticipate discharge to home after the hospital stay. - Mortality Measure Prognosis:: Good
[2020-10-11 15:46] LABS: CORONAVIRUS COVID-19 NAA NEGATIVE (NEGATIVE)
[2020-10-11] MEDS ORDERED: Polyethylene Glycol 3350 Powder 17 GM Packet PO PRN (16:07)
[2020-10-11] MEDS ORDERED: Ondansetron 4 MG/2 ML SDV IV PRN (16:07)
[2020-10-11] MEDS: Enoxaparin 40 MG/0.4 ML Syringe SUBCUT SCH (16:46)
[2020-10-11] MEDS: Sodium Chloride 0.9% 1,000 ML IV SCH (16:46)
[2020-10-12] MEDS: Sodium Chloride 0.9% 1,000 ML IV SCH ×2 (00:56→09:04)
[2020-10-12] MEDS: Allopurinol 100 MG Tab PO SCH (09:06)
--- NOTE | 2020-10-12 11:43 | PCM.PN ---
- General Info Date of Service: 10/12/20 Subjective Update: Mr. English continues to experience weakness and lethargy. He has remained stable since admission with good vital signs and no significant temperature elevation. White blood cell count has improved from admission. Functional Status: Reports: Tolerating Diet, Urinating - Review of Systems General: Reports: Weakness, Fatigue, Malaise. Denies: Fever, Chills Pulmonary: Reports: No Symptoms Cardiovascular: Reports: No Symptoms Gastrointestinal: Reports: No Symptoms Genitourinary: Reports: Dysuria, Frequency - Patient Data Vitals - Most Recent: Last Vital Signs Temp 97.6 F 10/12/20 10:33 Pulse 72 10/12/20 10:33 Resp 16 10/12/20 10:33 BP 100/58 L 10/12/20 10:33 Pulse Ox 95 10/12/20 10:33 Weight - Most Recent: 197 lb 15.602 oz I&O - Last 24 Hours: Intake & Output 10/11/20 10/12/20 10/12/20 22:59 06:59 14:59 Intake Total 500 1200 2757 Balance 500 1200 2757 Lab Results Last 24 Hours: Laboratory Results - last 24 hr 10/11/20 10/11/20 10/11/20 Range/Units 11:55 11:55 11:55 WBC 23.4 H (4.5-11.0) K/uL RBC 4.91 (4.30-5.90) M/uL Hgb 15.5 H (12.0-15.0) g/dL Hct 45.2 (40.0-54.0) % MCV 92 (80-98) fL MCH 32 H (27-31) pg MCHC 34 (32-36) % Plt Count 234 (150-400) K/uL Neut % (Auto) 87 H (36-66) % Lymph % (Auto) 4 L (24-44) % [place] % (Auto) 9 H (2-6) % Eos % (Auto) 0 L (2-4) % Baso % (Auto) 0 (0-1) % Sodium 139 L (140-148) mmol/L Potassium 3.9 (3.6-5.2) mmol/L Chloride 101 (100-108) mmol/L Carbon Dioxide 26 (21-32) mmol/L Anion Gap 15.9 H (5.0-14.0) mmol/L BUN 16 (7-18) mg/dL Creatinine 1.5 H (0.8-1.3) mg/dL Est Cr Clr Drug Dosing 58.20 mL/min Estimated GFR (MDRD) 48 L (>60) Glucose 120 H (74-106) mg/dL Lactic Acid 1.7 (0.4-2.0) mmol/L Calcium 9.0 (8.5-10.1) mg/dL Magnesium (1.8-2.4) mg/dL Total Bilirubin 1.9 H (0.2-1.0) mg/dL AST 17 (15-37) U/L ALT 40 (12-78) U/L Alkaline Phosphatase 107 (46-116) U/L C-Reactive Protein 20.03 H (0.0-0.3) mg/dL Total Protein 7.5 (6.4-8.2) g/dL Albumin 3.4 (3.4-5.0) g/dL Globulin 4.1 H (2.3-3.5) g/dL Albumin/Globulin Ratio 0.8 L (1.2-2.2) Procalcitonin ng/mL Influenza Type A RNA (NEGATIVE) RSV RNA (INAAT) (NEGATIVE) Influenza Type B RNA (NEGATIVE) SARS-CoV-2 RNA (NIKOLAI) (NEGATIVE) 10/11/20 10/11/20 10/12/20 Range/Units 11:55 14:05 05:39 WBC 13.8 H (4.5-11.0) K/uL RBC 3.91 L (4.30-5.90) M/uL Hgb 12.5 D (12.0-15.0) g/dL Hct 36.2 L (40.0-54.0) % MCV 93 (80-98) fL MCH 32 H (27-31) pg MCHC 35 (32-36) % Plt Count 182 (150-400) K/uL Neut % (Auto) 83 H (36-66) % Lymph % (Auto) 9 L (24-44) % [place] % (Auto) 8 H (2-6) % Eos % (Auto) 0 L (2-4) % Baso % (Auto) 0 (0-1) % Sodium (140-148) mmol/L Potassium (3.6-5.2) mmol/L Chloride (100-108) mmol/L Carbon Dioxide (21-32) mmol/L Anion Gap (5.0-14.0) mmol/L BUN (7-18) mg/dL Creatinine (0.8-1.3) mg/dL Est Cr Clr Drug Dosing mL/min Estimated GFR (MDRD) (>60) Glucose (74-106) mg/dL Lactic Acid (0.4-2.0) mmol/L Calcium (8.5-10.1) mg/dL Magnesium (1.8-2.4) mg/dL Total Bilirubin (0.2-1.0) mg/dL AST (15-37) U/L ALT (12-78) U/L Alkaline Phosphatase (46-116) U/L C-Reactive Protein (0.0-0.3) mg/dL Total Protein (6.4-8.2) g/dL Albumin (3.4-5.0) g/dL Globulin (2.3-3.5) g/dL Albumin/Globulin Ratio (1.2-2.2) Procalcitonin 0.67 ng/mL Influenza Type A RNA Negative (NEGATIVE) RSV RNA (INAAT) Negative (NEGATIVE) Influenza Type B RNA Negative (NEGATIVE) SARS-CoV-2 RNA (NIKOLAI) Negative (NEGATIVE) 10/12/20 Range/Units 05:39 WBC (4.5-11.0) K/uL RBC (4.30-5.90) M/uL Hgb (12.0-15.0) g/dL Hct (40.0-54.0) % MCV (80-98) fL MCH (27-31) pg MCHC (32-36) % Plt Count (150-400) K/uL Neut % (Auto) (36-66) % Lymph % (Auto) (24-44) % [place] % (Auto) (2-6) % Eos % (Auto) (2-4) % Baso % (Auto) (0-1) % Sodium 142 (140-148) mmol/L Potassium 3.9 (3.6-5.2) mmol/L Chloride 106 (100-108) mmol/L Carbon Dioxide 25 (21-32) mmol/L Anion Gap 10.8 (5.0-14.0) mmol/L BUN 13 (7-18) mg/dL Creatinine 1.2 (0.8-1.3) mg/dL Est Cr Clr Drug Dosing 72.75 mL/min Estimated GFR (MDRD) > 60 (>60) Glucose 105 (74-106) mg/dL Lactic Acid (0.4-2.0) mmol/L Calcium 8.1 L (8.5-10.1) mg/dL Magnesium 1.9 (1.8-2.4) mg/dL Total Bilirubin 1.8 H (0.2-1.0) mg/dL AST 93 H D (15-37) U/L ALT 107 H (12-78) U/L Alkaline Phosphatase 150 H (46-116) U/L C-Reactive Protein (0.0-0.3) mg/dL Total Protein 5.7 L (6.4-8.2) g/dL Albumin 2.4 L (3.4-5.0) g/dL Globulin 3.3 (2.3-3.5) g/dL Albumin/Globulin Ratio 0.7 L (1.2-2.2) Procalcitonin ng/mL Influenza Type A RNA (NEGATIVE) RSV RNA (INAAT) (NEGATIVE) Influenza Type B RNA (NEGATIVE) SARS-CoV-2 RNA (NIKOLAI) (NEGATIVE) Dion Results Last 24 Hours: Microbiology 10/11/20 11:28 Urine Culture - Preliminary Urine, Clean Catch Med Orders - Current: Current Medications Acetaminophen (Acetaminophen 325 Mg Tab) 650 mg PO Q4H PRN PRN Reason: Pain (Mild 1-3)/fever Allopurinol (Allopurinol 100 Mg Tab) 100 mg PO DAILY [facility] Last Admin: 10/12/20 09:06 Dose: 100 mg Documented by: Enoxaparin Sodium (Enoxaparin 40 Mg/0.4 Ml Syringe) 40 mg SUBCUT Q24H [facility] Last Admin: 10/11/20 16:46 Dose: 40 mg Documented by: Ceftriaxone Sodium 1 gm/ (Sodium Chloride) 50 mls @ 100 mls/hr IV Q24H [facility] Ondansetron HCl (Ondansetron 4 Mg/2 Ml Sdv) 4 mg IV Q4H PRN PRN Reason: Nausea/Vomiting Polyethylene Glycol (Polyethylene Glycol 3350 Powder 17 Gm Packet) 17 gm PO DAILY PRN PRN Reason: Constipation Sodium Chloride (Sodium Chloride 0.9% 10 Ml Syringe) 10 ml FLUSH ASDIRECTED PRN PRN Reason: Keep Vein Open Discontinued Medications Lactated Ringer's (Ringers, Lactated) 1,000 mls @ 999 mls/hr IV ASDIRECTED [facility] Last Admin: 10/11/20 11:45 Dose: 999 mls/hr Documented by: Ceftriaxone Sodium 2 gm/ (Sodium Chloride) 50 mls @ 100 mls/hr IV Q24H [facility] Last Admin: 10/11/20 12:01 Dose: 100 mls/hr Documented by: Lactated Ringer's (Ringers, Lactated) 1,000 mls @ 999 mls/hr IV BOLUS [facility] Stop: 10/11/20 14:01 Last Admin: 10/11/20 12:54 Dose: 999 mls/hr Documented by: Sodium Chloride (Normal Saline) 1,000 mls @ 125 mls/hr IV ASDIRECTED [facility] Last Admin: 10/12/20 09:04 Dose: 125 mls/hr Documented by: Sodium Chloride (Sodium Chloride 0.9% 10 Ml Syringe) 10 ml FLUSH ASDIRECTED PRN PRN Reason: Keep Vein Open - Exam Quality Assessment: DVT Prophylaxis General: Alert, Oriented, Cooperative, Mild Distress Lungs: Clear to Auscultation, Normal Respiratory Effort Cardiovascular: Regular Rate, Regular Rhythm, No Murmurs GI/Abdominal Exam: Soft, Non-Tender, No Organomegaly, No Distention Extremities: Non-Tender, No Pedal Edema - Patient Data Lab Results Last 24 hrs: Laboratory Results - last 24 hr 10/11/20 10/11/20 10/11/20 Range/Units 11:55 11:55 11:55 WBC 23.4 H (4.5-11.0) K/uL RBC 4.91 (4.30-5.90) M/uL Hgb 15.5 H (12.0-15.0) g/dL Hct 45.2 (40.0-54.0) % MCV 92 (80-98) fL MCH 32 H (27-31) pg MCHC 34 (32-36) % Plt Count 234 (150-400) K/uL Neut % (Auto) 87 H (36-66) % Lymph % (Auto) 4 L (24-44) % [place] % (Auto) 9 H (2-6) % Eos % (Auto) 0 L (2-4) % Baso % (Auto) 0 (0-1) % Sodium 139 L (140-148) mmol/L Potassium 3.9 (3.6-5.2) mmol/L Chloride 101 (100-108) mmol/L Carbon Dioxide 26 (21-32) mmol/L Anion Gap 15.9 H (5.0-14.0) mmol/L BUN 16 (7-18) mg/dL Creatinine 1.5 H (0.8-1.3) mg/dL Est Cr Clr Drug Dosing 58.20 mL/min Estimated GFR (MDRD) 48 L (>60) Glucose 120 H (74-106) mg/dL Lactic Acid 1.7 (0.4-2.0) mmol/L Calcium 9.0 (8.5-10.1) mg/dL Magnesium (1.8-2.4) mg/dL Total Bilirubin 1.9 H (0.2-1.0) mg/dL AST 17 (15-37) U/L ALT 40 (12-78) U/L Alkaline Phosphatase 107 (46-116) U/L C-Reactive Protein 20.03 H (0.0-0.3) mg/dL Total Protein 7.5 (6.4-8.2) g/dL Albumin 3.4 (3.4-5.0) g/dL Globulin 4.1 H (2.3-3.5) g/dL Albumin/Globulin Ratio 0.8 L (1.2-2.2) Procalcitonin ng/mL Influenza Type A RNA (NEGATIVE) RSV RNA (INAAT) (NEGATIVE) Influenza Type B RNA (NEGATIVE) SARS-CoV-2 RNA (NIKOLAI) (NEGATIVE) 10/11/20 10/11/20 10/12/20 Range/Units 11:55 14:05 05:39 WBC 13.8 H (4.5-11.0) K/uL RBC 3.91 L (4.30-5.90) M/uL Hgb 12.5 D (12.0-15.0) g/dL Hct 36.2 L (40.0-54.0) % MCV 93 (80-98) fL MCH 32 H (27-31) pg MCHC 35 (32-36) % Plt Count 182 (150-400) K/uL Neut % (Auto) 83 H (36-66) % Lymph % (Auto) 9 L (24-44) % [place] % (Auto) 8 H (2-6) % Eos % (Auto) 0 L (2-4) % Baso % (Auto) 0 (0-1) % Sodium (140-148) mmol/L Potassium (3.6-5.2) mmol/L Chloride (100-108) mmol/L Carbon Dioxide (21-32) mmol/L Anion Gap (5.0-14.0) mmol/L BUN (7-18) mg/dL Creatinine (0.8-1.3) mg/dL Est Cr Clr Drug Dosing mL/min Estimated GFR (MDRD) (>60) Glucose (74-106) mg/dL Lactic Acid (0.4-2.0) mmol/L Calcium (8.5-10.1) mg/dL Magnesium (1.8-2.4) mg/dL Total Bilirubin (0.2-1.0) mg/dL AST (15-37) U/L ALT (12-78) U/L Alkaline Phosphatase (46-116) U/L C-Reactive Protein (0.0-0.3) mg/dL Total Protein (6.4-8.2) g/dL Albumin (3.4-5.0) g/dL Globulin (2.3-3.5) g/dL Albumin/Globulin Ratio (1.2-2.2) Procalcitonin 0.67 ng/mL Influenza Type A RNA Negative (NEGATIVE) RSV RNA (INAAT) Negative (NEGATIVE) Influenza Type B RNA Negative (NEGATIVE) SARS-CoV-2 RNA (NIKOLAI) Negative (NEGATIVE) 10/12/20 Range/Units 05:39 WBC (4.5-11.0) K/uL RBC (4.30-5.90) M/uL Hgb (12.0-15.0) g/dL Hct (40.0-54.0) % MCV (80-98) fL MCH (27-31) pg MCHC (32-36) % Plt Count (150-400) K/uL Neut % (Auto) (36-66) % Lymph % (Auto) (24-44) % [place] % (Auto) (2-6) % Eos % (Auto) (2-4) % Baso % (Auto) (0-1) % Sodium 142 (140-148) mmol/L Potassium 3.9 (3.6-5.2) mmol/L Chloride 106 (100-108) mmol/L Carbon Dioxide 25 (21-32) mmol/L Anion Gap 10.8 (5.0-14.0) mmol/L BUN 13 (7-18) mg/dL Creatinine 1.2 (0.8-1.3) mg/dL Est Cr Clr Drug Dosing 72.75 mL/min Estimated GFR (MDRD) > 60 (>60) Glucose 105 (74-106) mg/dL Lactic Acid (0.4-2.0) mmol/L Calcium 8.1 L (8.5-10.1) mg/dL Magnesium 1.9 (1.8-2.4) mg/dL Total Bilirubin 1.8 H (0.2-1.0) mg/dL AST 93 H D (15-37) U/L ALT 107 H (12-78) U/L Alkaline Phosphatase 150 H (46-116) U/L C-Reactive Protein (0.0-0.3) mg/dL Total Protein 5.7 L (6.4-8.2) g/dL Albumin 2.4 L (3.4-5.0) g/dL Globulin 3.3 (2.3-3.5) g/dL Albumin/Globulin Ratio 0.7 L (1.2-2.2) Procalcitonin ng/mL Influenza Type A RNA (NEGATIVE) RSV RNA (INAAT) (NEGATIVE) Influenza Type B RNA (NEGATIVE) SARS-CoV-2 RNA (NIKOLAI) (NEGATIVE) Result Diagrams: 10/12/20 05:39 10/12/20 05:39 Dion Results Last 24 hrs: Microbiology 10/11/20 11:28 Urine Culture - Preliminary Urine, Clean Catch Sepsis Event Note - Evaluation Sepsis Screening Result: No Definite Risk - Focused Exam Vital Signs: Vital Signs Temp Pulse Resp BP BP Pulse Ox 10/12/20 10:33 97.6 F 72 16 100/58 L 95 10/12/20 07:15 97.8 F 64 20 113/64 94 L 10/12/20 03:25 97.8 F 77 16 106/57 L 97 10/12/20 00:18 97.6 F 81 16 145/84 H 95 - Problem List Review Problem List Initiated/Reviewed/Updated: Yes - My Orders Last 24 Hours: My Active Orders 10/11/20 Lunch Regular Diet [DIET] 10/11/20 14:22 Resuscitation Status Routine 10/11/20 16:07 Acetaminophen [TylenoL] 650 mg PO Q4H PRN Ondansetron [Zofran] 4 mg IV Q4H PRN Sodium Chloride 0.9% [Saline Flush] 10 ml FLUSH ASDIRECTED PRN polyethylene glycoL 3350 [MiraLAX] 17 gm PO DAILY PRN 10/11/20 16:07 Patient Status [ADT] Routine Ambulate [RC] QID Height and Weight [RC] 0500 Intake and Output [RC] QSHIFT Notify Provider Vital Signs [RC] ASDIRECTED Oxygen Therapy [RC] PRN Peripheral IV Care [RC] Q12H Up ad Zaria [RC] ASDIRECTED Up to Chair [RC] QID Vital Signs [RC] Q4H Peripheral IV Insertion Adult [OM.PC] Routine 10/11/20 17:00 Enoxaparin [Lovenox] 40 mg SUBCUT Q24H 10/12/20 09:00 allopurinoL [Zyloprim] 100 mg PO DAILY 10/12/20 11:38 Convert IV to Saline Lock [OM.PC] Routine 10/12/20 14:30 cefTRIAXone [Rocephin] 1 gm Sodium Chloride 0.9% [Normal Saline] 50 ml IV Q24H 10/13/20 05:00 CBC WITH AUTO DIFF [HEME] Timed COMPREHENSIVE METABOLIC PN,CMP [CHEM] Timed - Plan Plan:: ASSESSMENT AND PLAN URINARY TRACT INFECTION-remains weak and somewhat lethargic. No evidence of sepsis identified thus far. Urinalysis is consistent with infection and white blood cell count is elevated but improved from admission -Urine and blood cultures pending -Saline lock IV -IV ceftriaxone pending culture results MAINTENANCE ISSUES -DVT prophylaxis; Lovenox 30 mg subcu daily -GI prophylaxis; not indicated -Scott catheter; not indicated -Nutrition; regular diet -Nicotine dependence; not required CODE STATUS-FULL CODE ADMISSION STATUS-patient will be admitted to inpatient status, expect at least a 2 night hospital stay for evaluation and management of problems as outlined above. At the time of this admission I do not reasonably expected evaluation and management of this problem will require more than a 96 hour hospital stay. DISPOSITION-anticipate discharge to home after the hospital stay.
[2020-10-12] MEDS ORDERED: Albuterol 0.083% 2.5 MG/3 ML Neb Soln NEB PRN (13:44)
[2020-10-12] MEDS ORDERED: cefTRIAXone 1 GM in Sodium Chloride 0.9% 50 ML IV SCH (14:30)
[2020-10-12] MEDS: Acetaminophen 325 MG Tab PO PRN ×2 (14:51→23:55)
[2020-10-12] MEDS: Enoxaparin 40 MG/0.4 ML Syringe SUBCUT SCH (17:31)
[2020-10-13] MEDS: Allopurinol 100 MG Tab PO SCH (09:15)
--- NOTE | 2020-10-13 10:50 | US ---
Abdomen Ltd CLINICAL HISTORY: Elevated bilirubin COMPARISON: CT 2019. TECHNIQUE: Real-time images were obtained through the right upper quadrant. FINDINGS: The liver is free of mass or biliary dilatation. There is normal parenchymal echotexture.. The gallbladder contains some biliary sludge. There is no wall thickening The common bile duct measures 4 mm. The pancreas is moderately obscured. The right kidney measures 11.2 x 6.0 x 6.3 cm. Cortical thickness is 2.1 cm.. The IVC is normal. IMPRESSION: Biliary sludge in the gallbladder No stones or biliary ductal dilatation
--- NOTE | 2020-10-13 13:00 | PCM.PN ---
- General Info Date of Service: 10/13/20 Subjective Update: Mr. English feels somewhat weak and lethargic, no significant temperature elevations in the last 24 hours. Bilirubin level is elevated to 2.8 as well as further increase in AST, ALT, and alkaline phosphatase. Ultrasound shows gallbladder sludge but no wall thickening or ductal dilatation. Functional Status: Reports: Ambulating, Urinating. Denies: Tolerating Diet - Review of Systems General: Reports: Weakness, Fatigue, Malaise. Denies: Fever, Chills, Appetite Pulmonary: Reports: No Symptoms Cardiovascular: Reports: No Symptoms Gastrointestinal: Reports: No Symptoms Genitourinary: Reports: Dysuria, Frequency. Denies: Hematuria, Retention - Patient Data Vitals - Most Recent: Last Vital Signs Temp 96.6 F L 10/13/20 10:43 Pulse 66 10/13/20 10:43 Resp 18 10/13/20 10:43 BP 124/80 10/13/20 10:43 Pulse Ox 98 10/13/20 10:43 Weight - Most Recent: 197 lb 15.602 oz I&O - Last 24 Hours: Intake & Output 10/12/20 10/13/20 10/13/20 22:59 06:59 14:59 Intake Total 920 300 600 Balance 920 300 600 Lab Results Last 24 Hours: Laboratory Results - last 24 hr 10/13/20 10/13/20 Range/Units 05:41 05:41 WBC 8.1 (4.5-11.0) K/uL RBC 4.09 L (4.30-5.90) M/uL Hgb 13.0 (12.0-15.0) g/dL Hct 37.6 L (40.0-54.0) % MCV 92 (80-98) fL MCH 32 H (27-31) pg MCHC 35 (32-36) % Plt Count 200 (150-400) K/uL Neut % (Auto) 69 H (36-66) % Lymph % (Auto) 15 L (24-44) % Potter % (Auto) 15 H (2-6) % Eos % (Auto) 1 L (2-4) % Baso % (Auto) 0 (0-1) % Sodium 142 (140-148) mmol/L Potassium 4.0 (3.6-5.2) mmol/L Chloride 104 (100-108) mmol/L Carbon Dioxide 26 (21-32) mmol/L Anion Gap 12.4 (5.0-14.0) mmol/L BUN 11 (7-18) mg/dL Creatinine 1.3 (0.8-1.3) mg/dL Est Cr Clr Drug Dosing 67.25 mL/min Estimated GFR (MDRD) 57 L (>60) Glucose 109 H (74-106) mg/dL Calcium 8.6 (8.5-10.1) mg/dL Total Bilirubin 2.8 H D (0.2-1.0) mg/dL AST 119 H (15-37) U/L ALT 180 H (12-78) U/L Alkaline Phosphatase 262 H (46-116) U/L Total Protein 6.4 (6.4-8.2) g/dL Albumin 2.7 L (3.4-5.0) g/dL Globulin 3.7 H (2.3-3.5) g/dL Albumin/Globulin Ratio 0.7 L (1.2-2.2) Dion Results Last 24 Hours: Microbiology 10/11/20 11:55 Aerobic Blood Culture - Preliminary Blood - Arm, Right NO GROWTH AFTER 2 DAYS Anaerobic Blood Culture - Preliminary NO GROWTH AFTER 2 DAYS 10/11/20 11:45 Aerobic Blood Culture - Preliminary Blood - Venous - Iv Start NO GROWTH AFTER 2 DAYS Anaerobic Blood Culture - Preliminary NO GROWTH AFTER 2 DAYS 10/11/20 11:28 Urine Culture - Final Urine, Clean Catch Escherichia Coli Med Orders - Current: Current Medications Acetaminophen (Acetaminophen 325 Mg Tab) 650 mg PO Q4H PRN PRN Reason: Pain (Mild 1-3)/fever Last Admin: 10/12/20 23:55 Dose: 650 mg Documented by: Albuterol (Albuterol 0.083% 2.5 Mg/3 Ml Neb Soln) 2.5 mg NEB Q4H PRN PRN Reason: Congestion Last Admin: 10/12/20 13:56 Dose: 2.5 mg Documented by: Allopurinol (Allopurinol 100 Mg Tab) 100 mg PO DAILY TALISHA Last Admin: 10/13/20 09:15 Dose: 100 mg Documented by: Ciprofloxacin (Ciprofloxacin 500 Mg Tab) 500 mg PO BID [facility] Enoxaparin Sodium (Enoxaparin 40 Mg/0.4 Ml Syringe) 40 mg SUBCUT Q24H [facility] Last Admin: 10/12/20 17:31 Dose: 40 mg Documented by: Ondansetron HCl (Ondansetron 4 Mg/2 Ml Sdv) 4 mg IV Q4H PRN PRN Reason: Nausea/Vomiting Polyethylene Glycol (Polyethylene Glycol 3350 Powder 17 Gm Packet) 17 gm PO DAILY PRN PRN Reason: Constipation Sodium Chloride (Sodium Chloride 0.9% 10 Ml Syringe) 10 ml FLUSH ASDIRECTED PRN PRN Reason: Keep Vein Open Discontinued Medications Lactated Ringer's (Ringers, Lactated) 1,000 mls @ 999 mls/hr IV ASDIRECTED [facility] Last Admin: 10/11/20 11:45 Dose: 999 mls/hr Documented by: Ceftriaxone Sodium 2 gm/ (Sodium Chloride) 50 mls @ 100 mls/hr IV Q24H [facility] Last Admin: 10/11/20 12:01 Dose: 100 mls/hr Documented by: Lactated Ringer's (Ringers, Lactated) 1,000 mls @ 999 mls/hr IV BOLUS [facility] Stop: 10/11/20 14:01 Last Admin: 10/11/20 12:54 Dose: 999 mls/hr Documented by: Sodium Chloride (Normal Saline) 1,000 mls @ 125 mls/hr IV ASDIRECTED [facility] Last Admin: 10/12/20 09:04 Dose: 125 mls/hr Documented by: Ceftriaxone Sodium 1 gm/ (Sodium Chloride) 50 mls @ 100 mls/hr IV Q24H [facility] Last Admin: 10/12/20 13:48 Dose: 100 mls/hr Documented by: Sodium Chloride (Sodium Chloride 0.9% 10 Ml Syringe) 10 ml FLUSH ASDIRECTED PRN PRN Reason: Keep Vein Open - Exam Quality Assessment: DVT Prophylaxis General: Alert, Oriented, Cooperative, Mild Distress Lungs: Clear to Auscultation, Normal Respiratory Effort Cardiovascular: Regular Rate, Regular Rhythm, No Murmurs GI/Abdominal Exam: Soft, Non-Tender, No Organomegaly, No Distention Extremities: Non-Tender, No Pedal Edema - Patient Data Lab Results Last 24 hrs: Laboratory Results - last 24 hr 10/13/20 10/13/20 Range/Units 05:41 05:41 WBC 8.1 (4.5-11.0) K/uL RBC 4.09 L (4.30-5.90) M/uL Hgb 13.0 (12.0-15.0) g/dL Hct 37.6 L (40.0-54.0) % MCV 92 (80-98) fL MCH 32 H (27-31) pg MCHC 35 (32-36) % Plt Count 200 (150-400) K/uL Neut % (Auto) 69 H (36-66) % Lymph % (Auto) 15 L (24-44) % Potter % (Auto) 15 H (2-6) % Eos % (Auto) 1 L (2-4) % Baso % (Auto) 0 (0-1) % Sodium 142 (140-148) mmol/L Potassium 4.0 (3.6-5.2) mmol/L Chloride 104 (100-108) mmol/L Carbon Dioxide 26 (21-32) mmol/L Anion Gap 12.4 (5.0-14.0) mmol/L BUN 11 (7-18) mg/dL Creatinine 1.3 (0.8-1.3) mg/dL Est Cr Clr Drug Dosing 67.25 mL/min Estimated GFR (MDRD) 57 L (>60) Glucose 109 H (74-106) mg/dL Calcium 8.6 (8.5-10.1) mg/dL Total Bilirubin 2.8 H D (0.2-1.0) mg/dL AST 119 H (15-37) U/L ALT 180 H (12-78) U/L Alkaline Phosphatase 262 H (46-116) U/L Total Protein 6.4 (6.4-8.2) g/dL Albumin 2.7 L (3.4-5.0) g/dL Globulin 3.7 H (2.3-3.5) g/dL Albumin/Globulin Ratio 0.7 L (1.2-2.2) Result Diagrams: 10/13/20 05:41 10/13/20 05:41 Dion Results Last 24 hrs: Microbiology 10/11/20 11:55 Aerobic Blood Culture - Preliminary Blood - Arm, Right NO GROWTH AFTER 2 DAYS Anaerobic Blood Culture - Preliminary NO GROWTH AFTER 2 DAYS 10/11/20 11:45 Aerobic Blood Culture - Preliminary Blood - Venous - Iv Start NO GROWTH AFTER 2 DAYS Anaerobic Blood Culture - Preliminary NO GROWTH AFTER 2 DAYS 10/11/20 11:28 Urine Culture - Final Urine, Clean Catch Escherichia Coli Sepsis Event Note - Evaluation Sepsis Screening Result: No Definite Risk - Focused Exam Vital Signs: Vital Signs Temp Pulse Resp BP Pulse Ox 10/13/20 10:43 96.6 F L 66 18 124/80 98 10/13/20 07:10 95.7 F L 62 18 110/60 95 10/13/20 02:51 97.1 F 68 16 101/64 96 - Problem List Review Problem List Initiated/Reviewed/Updated: Yes - My Orders Last 24 Hours: My Active Orders 10/12/20 13:44 Albuterol [Proventil Neb Soln] 2.5 mg NEB Q4H PRN 10/12/20 13:45 Incentive Spirometry [RT Incentive Spirometry] [RC] Q1HWA RT Aerosol Therapy [RC] ASDIRECTED 10/13/20 13:00 Ciprofloxacin [Ciprofloxacin HCl] 500 mg PO BID 10/14/20 05:00 COMPREHENSIVE METABOLIC PN,CMP [CHEM] Timed 10/14/20 05:11 BILIRUBIN DIRECT [CHEM] AM - Plan Plan:: ASSESSMENT AND PLAN URINARY TRACT INFECTION-remains weak and somewhat lethargic. No evidence of sepsis identified thus far. Urinalysis is consistent with infection and white blood cell count has normalized. Urine culture growing pansensitive E. coli. -Discontinue ceftriaxone -Ciprofloxacin 500 mg p.o. twice daily LIVER ENZYME ELEVATION-bilirubin increased to 2.1 with further increase in AST and ALT. Likely secondary to current therapy with ceftriaxone -Discontinue ceftriaxone -Recheck labs in a.m. MAINTENANCE ISSUES -DVT prophylaxis; Lovenox 30 mg subcu daily -GI prophylaxis; not indicated -Scott catheter; not indicated -Nutrition; regular diet -Nicotine dependence; not required CODE STATUS-FULL CODE ADMISSION STATUS-patient will be admitted to inpatient status, expect at least a 2 night hospital stay for evaluation and management of problems as outlined above. At the time of this admission I do not reasonably expected evaluation and management of this problem will require more than a 96 hour hospital stay. DISPOSITION-anticipate discharge to home after the hospital stay.
[2020-10-13] MEDS: Ciprofloxacin 500 MG Tab PO SCH ×2 (14:21→21:31)
[2020-10-13] MEDS: Enoxaparin 40 MG/0.4 ML Syringe SUBCUT SCH (17:03)
[2020-10-14 07:24] VITALS: BP 118/77; PULSE 57
[2020-10-14] MEDS: Allopurinol 100 MG Tab PO SCH (09:05)
[2020-10-14] MEDS: Ciprofloxacin 500 MG Tab PO SCH (09:05)
--- NOTE | 2020-10-14 10:04 | PCM.DCSUM1 ---
Discharge Summary - Hospital Course Brief History: Mr. English is a 60-year-old gentleman who was admitted through the emergency department with weakness, fever, dysuria, secondary to complicated urinary tract infection. - Discharge Data Discharge Date: 10/14/20 Discharge Disposition: Home, Self-Care 01 Condition: Fair - Referral to Home Health Primary Care Physician: PCP None - Discharge Diagnosis/Problem(s) (1) Complicated urinary tract infection SNOMED Code(s): 17137249 ICD Code: N39.0 - URINARY TRACT INFECTION, SITE NOT SPECIFIED Status: Acute Current Visit: Yes (2) Renal cell adenoma of right kidney SNOMED Code(s): 24524341, 40494761, 48738173 ICD Code: D30.01 - BENIGN NEOPLASM OF RIGHT KIDNEY Status: Acute Current Visit: Yes (3) Elevated bilirubin SNOMED Code(s): 84909424 ICD Code: R17 - UNSPECIFIED JAUNDICE Status: Acute Current Visit: Yes - Patient Summary/Data Hospital Course: Mr. English is a 60-year-old gentleman who was admitted through the emergency department with weakness secondary to urinary tract infection. He felt well until 2 days ago when he developed progressive weakness with myalgias. At that time he also noted onset of cloudy appearing urine associated with dysuria. Symptoms have persisted for a few days and become progressively worse. He presented to the emergency department and on evaluation is noted to have an e levated white blood cell count and urinalysis consistent with infection. He does have a known history of renal cell CA and is status post partial nephrectomy done approximately 1 year ago. He typically does not have significant urinary symptoms or difficulty with urination. On admission urine and blood cultures were obtained. Blood cultures remain negative but urine culture did grow pansensitive E. coli. He was given IV fluids for hydration and started on IV antibiotic therapy with ceftriaxone. Gradually improved although continued to have some symptoms of dysuria and hesitancy even at the time of discharge. He was noted to have elevated bilirubin on admission. Liver studies were monitored through the hospital stay and did increase with bilirubin peaking at 2.8. Transaminase levels also increased during the hospital stay. Was felt likely that this increase was secondary to the therapy with ceftriaxone and this medication was discontinued. He was switched to ciprofloxacin 500 mg twice daily and will be discharged on this medication for an additional 7 doses. Activity will be as tolerated and he will resume his usual diet. Follow-up appointment will be scheduled with his primary care provider within 1 week. Follow-up appointment should also be scheduled with urology for follow-up of urinary tract infection especially in light of his history of renal cell carcinoma. - Patient Instructions Diet: Usual Diet as Tolerated Activity: As Tolerated Other/Special Instructions: Please schedule follow-up appointment with primary care provider within 1 week. Please schedule follow-up appointment with urology. - Discharge Plan *PRESCRIPTION DRUG MONITORING PROGRAM REVIEWED*: Not Applicable *COPY OF PRESCRIPTION DRUG MONITORING REPORT IN PATIENT SNEHAL: Not Applicable Prescriptions/Med Rec: Ciprofloxacin [Ciprofloxacin HCl] 500 mg PO BID #7 tablet Home Medications: Home Meds Multivitamin [Multi-Vitamin Daily] 1 tab PO DAILY 02/18/19 [History] allopurinoL [Zyloprim] 100 mg PO DAILY 10/11/20 [History] Ciprofloxacin [Ciprofloxacin HCl] 500 mg PO BID #7 tablet 10/14/20 [Rx] Patient Handouts: Urinary Tract Infection, Adult, [id number] Referrals: Ricardo Mason MD [Ordering Only Provider] - 10/18/20 1:15 pm (Please arrive 15 minutes early to register for your appointment.) - Discharge Summary/Plan Comment DC Time >30 min.: No - Patient Data Vitals - Most Recent: Last Vital Signs Temp 97.4 F 10/14/20 07:00 Pulse 57 L 10/14/20 07:00 Resp 18 10/14/20 07:00 BP 118/77 10/14/20 07:00 Pulse Ox 96 10/14/20 07:00 Weight - Most Recent: 204 lb 1.6 oz I&O - Last 24 hours: Intake & Output 10/13/20 10/14/20 10/14/20 22:59 06:59 14:59 Intake Total 280 850 480 Balance 280 850 480 Lab Results - Last 24 hrs: Laboratory Results - last 24 hr 10/14/20 10/14/20 Range/Units 05:43 05:43 Sodium 143 (140-148) mmol/L Potassium 3.9 (3.6-5.2) mmol/L Chloride 105 (100-108) mmol/L Carbon Dioxide 26 (21-32) mmol/L Anion Gap 12.1 (5.0-14.0) mmol/L BUN 9 (7-18) mg/dL Creatinine 1.1 (0.8-1.3) mg/dL Est Cr Clr Drug Dosing 79.47 mL/min Estimated GFR (MDRD) > 60 (>60) Glucose 105 (74-106) mg/dL Calcium 9.0 (8.5-10.1) mg/dL Total Bilirubin 1.6 H (0.2-1.0) mg/dL Direct Bilirubin 1.14 H (0.0-0.2) mg/dL AST 79 H (15-37) U/L ALT 158 H (12-78) U/L Alkaline Phosphatase 244 H (46-116) U/L Total Protein 6.4 (6.4-8.2) g/dL Albumin 2.6 L (3.4-5.0) g/dL Globulin 3.8 H (2.3-3.5) g/dL Albumin/Globulin Ratio 0.7 L (1.2-2.2) EVA Results - Last 24 hrs: Microbiology 10/11/20 11:55 Aerobic Blood Culture - Preliminary Blood - Arm, Right NO GROWTH AFTER 2 DAYS Anaerobic Blood Culture - Preliminary NO GROWTH AFTER 2 DAYS 10/11/20 11:45 Aerobic Blood Culture - Preliminary Blood - Venous - Iv Start NO GROWTH AFTER 2 DAYS Anaerobic Blood Culture - Preliminary NO GROWTH AFTER 2 DAYS 10/11/20 11:28 Urine Culture - Final Urine, Clean Catch Escherichia Coli Med Orders - Current: Current Medications Acetaminophen (Acetaminophen 325 Mg Tab) 650 mg PO Q4H PRN PRN Reason: Pain (Mild 1-3)/fever Last Admin: 10/12/20 23:55 Dose: 650 mg Documented by: Albuterol (Albuterol 0.083% 2.5 Mg/3 Ml Neb Soln) 2.5 mg NEB Q4H PRN PRN Reason: Congestion Last Admin: 10/12/20 13:56 Dose: 2.5 mg Documented by: Allopurinol (Allopurinol 100 Mg Tab) 100 mg PO DAILY [facility] Last Admin: 10/14/20 09:05 Dose: 100 mg Documented by: Ciprofloxacin (Ciprofloxacin 500 Mg Tab) 500 mg PO BID [facility] Last Admin: 10/14/20 09:05 Dose: 500 mg Documented by: Enoxaparin Sodium (Enoxaparin 40 Mg/0.4 Ml Syringe) 40 mg SUBCUT Q24H [facility] Last Admin: 10/13/20 17:03 Dose: 40 mg Documented by: Ondansetron HCl (Ondansetron 4 Mg/2 Ml Sdv) 4 mg IV Q4H PRN PRN Reason: Nausea/Vomiting Polyethylene Glycol (Polyethylene Glycol 3350 Powder 17 Gm Packet) 17 gm PO DAILY PRN PRN Reason: Constipation Sodium Chloride (Sodium Chloride 0.9% 10 Ml Syringe) 10 ml FLUSH ASDIRECTED PRN PRN Reason: Keep Vein Open Discontinued Medications Lactated Ringer's (Ringers, Lactated) 1,000 mls @ 999 mls/hr IV ASDIRECTED [facility] Last Admin: 10/11/20 11:45 Dose: 999 mls/hr Documented by: Ceftriaxone Sodium 2 gm/ (Sodium Chloride) 50 mls @ 100 mls/hr IV Q24H [facility] Last Admin: 10/11/20 12:01 Dose: 100 mls/hr Documented by: Lactated Ringer's (Ringers, Lactated) 1,000 mls @ 999 mls/hr IV BOLUS [facility] Stop: 10/11/20 14:01 Last Admin: 10/11/20 12:54 Dose: 999 mls/hr Documented by: Sodium Chloride (Normal Saline) 1,000 mls @ 125 mls/hr IV ASDIRECTED [facility] Last Admin: 10/12/20 09:04 Dose: 125 mls/hr Documented by: Ceftriaxone Sodium 1 gm/ (Sodium Chloride) 50 mls @ 100 mls/hr IV Q24H [facility] Last Admin: 10/12/20 13:48 Dose: 100 mls/hr Documented by: Sodium Chloride (Sodium Chloride 0.9% 10 Ml Syringe) 10 ml FLUSH ASDIRECTED PRN PRN Reason: Keep Vein Open - Exam General: Reports: Alert, Oriented, Cooperative, Mild Distress Lungs: Reports: Clear to Auscultation, Normal Respiratory Effort Cardiovascular: Reports: Regular Rate, Regular Rhythm, No Murmurs GI/Abdominal Exam: Soft, Non-Tender, No Organomegaly, No Distention Extremities: Non-Tender, No Pedal Edema
== END 2020-10-14 11:00 | disposition home or self-care (01) | DRG 690 ==
LOC: JP.ED 10:16 → JP.MS 14:25
PROVIDERS: ADMIT Hospitalist; ATTEND Hospitalist
DX: N39.0 Urinary tract infection, site not specified (principal); N28.9 Disorder of kidney and ureter, unspecified; R17 Unspecified jaundice; M54.9 Dorsalgia, unspecified; D30.01 Benign neoplasm of right kidney; Z98.890 Other specified postprocedural states; B96.20 Unspecified Escherichia coli [E. coli] as the cause of diseases classified elsewhere; Z79.899 Other long term (current) drug therapy; Z88.2 Allergy status to sulfonamides; G89.29 Other chronic pain; R74.8 Abnormal levels of other serum enzymes; Z20.822 Contact with and (suspected) exposure to COVID-19
CPT/HCPCS: 0241U; 36415; 76705; 76705-26; 80053; 81001; 82248; 83605; 83735; 84145; 85025; 86140; 87040; 87086; 87088; 87186; 94640; 96365; 99283; 99284-25; A9270-GY; J0696; J1650; J7030; J7120

== ENCOUNTER 2025-01-29 20:03 | Emergency (ER) | payer OTHER ==
[2025-01-29 20:43] VITALS: BP 153/89; PULSE 75
== END 2025-01-29 21:37 | disposition home or self-care (01) ==
LOC: JP.ED 20:03
DX: S50.852A Superficial foreign body of left forearm, initial encounter (principal); Z88.2 Allergy status to sulfonamides; Z79.899 Other long term (current) drug therapy; W45.8XXA Other foreign body or object entering through skin, initial encounter
CPT/HCPCS: 10120; 99283-25